=== PATIENT | male | born 1970 | race Caucasian/White ===

== ENCOUNTER → 2017-01-22 | Outpatient (CLI) | payer BC ==
--- NOTE | 2017-01-23 16:36 | PULMONARY FUNCTION TEST ---
CLINICAL DATA: A 46-year-old male with a height of 68 inches and a weight of [address] Garvey for persistent dyspnea. Spirometry pre- and post-bronchodilator, lung volumes, and DLCO were performed. FINDINGS: Prebronchodilator spirometry demonstrates mild to moderate mixed restrictive/obstructive disease with significant improvement after inhaled bronchodilator. FVC was 61% of predicted, FEV1 was 60% of predicted. [id number] was 57% of predicted. FVC did not change with bronchodilator. FEV1 increased by 11% to 60% of predicted. [id number] improved 33% to 76% of predicted. Lung volumes demonstrated mild to moderate restrictive changes. DLCO was mildly reduced at 73% of predicted. 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 MTDD
== END | disposition home or self-care (01) ==
LOC: C.RC 13:27
PROVIDERS: ATTEND Family Medicine
DX: R06.02 Shortness of breath (principal)

== ENCOUNTER → 2017-10-09 | Outpatient (CLI) | payer OTHER ==
--- NOTE | 2017-10-09 14:15 | DIAGNOSTIC IMAGING REPORT ---
CHEST 2 VIEWS ROUTINE CLINICAL HISTORY: 46 years-old Male presenting with R06.02 Shortness of [id number] Restrictive lung [id number] Ab. TECHNIQUE: PA and lateral views of the chest were obtained. COMPARISON: 02/23/2013. FINDINGS: Cardiomediastinal silhouette normal. Bandlike opacities at the lung bases greater on the left, nonspecific change from prior. Persistent small bilateral pleural effusions. No pneumothorax. Scarring at the left apex is greater than on prior exam. Osseous structures normal. Upper abdomen normal. IMPRESSION: 1. Chronic basilar predominant atelectasis or scarring and small bilateral pleural effusions. 2. Slight interval progression of left apical scarring. Electronically signed by: Perez Jean M.D. 10/09/2017 2:14 PM Dictated Date/Time: 10/09/2017 2:12 PM
== END | disposition home or self-care (01) ==
LOC: C.RAD1850 14:02
PROVIDERS: ATTEND Internal Medicine Pulmonary Disease
DX: R91.8 Other nonspecific abnormal finding of lung field (principal); J98.4 Other disorders of lung; J98.11 Atelectasis; J90 Pleural effusion, not elsewhere classified